=== PATIENT | female | born 1950 | race Caucasian/White ===

== ENCOUNTER → 2017-08-07 | Outpatient (CLI) | payer OTHER ==
[~2017-08-07] MED LIST: ASPIR 8181 M1 PO; CIPRO250 M2 PO; CLONAZEPAM 0.50.5 M1 PO; DICYCLOMINE HCL20 MG PO; HYDROCODONE-AP1 EAC6 PO; LISINOPRIL20 MG PO; LOPERAMIDE 2 MG2 M1 PO; MEDROL DOSPAK21 TA1 PO; MOBIC15 MG PO; NEURONTIN 300300 M1 PO; NORCO 5-325 TA1 EAC1 PO; ONDANSETRON HCL4 M2 PO; OTHER MISCELL; OXYBUTYNIN 5 MG5 M2 PO; REMERON15 MG; REQUIP0.5 MG PO; REQUIP3 MG PO; TRAMADOL 50 MG50 MG; TRAZODONE HCL50 MG PO; TYLENOL325 MG PO; ULTRAM 50MG TAB50 MG PO
== END ==
LOC: M.ULTRA 15:16
DX: R60.0 Localized edema (principal); M79.604 Pain in right leg; M79.605 Pain in left leg; M79.89 Other specified soft tissue disorders

== ENCOUNTER → 2018-06-11 | Outpatient (CLI) | payer OTHER | LOC: M.RAD 05-29 12:07 | DX: Z12.31 Encounter for screening mammogram for malignant neoplasm of breast (principal); Z13.820 Encounter for screening for osteoporosis; Z78.0 Asymptomatic menopausal state; Z87.891 Personal history of nicotine dependence ==

== ENCOUNTER 2018-12-27 00:32 | Emergency (ER) | payer OTHER ==
[~2018-12-27] VITALS: Ht 167.6 cm; Wt 49.9 kg
[2018-12-27 01:24] LABS: ABSOLUTE EOSINOPHILS 0.1 thou/uL (0.0-0.7); ABSOLUTE LYMPHOCYTES 1.3 thou/uL (0.8-5.3); ABSOLUTE MONOCYTES 0.6 thou/uL (0.0-1.2); ABSOLUTE NEUTROPHILS 4.3 thou/uL (1.6-8.1); BASOPHILS 0.8 %; EOSINOPHILS 1.8 %; HEMATOCRIT 36.9 % (37.0-47.0); HEMOGLOBIN 12.1 gm/dL (12.0-15.0); LYMPHOCYTES 21.1 %; MCH 29.2 pg (26.0-34.0); MCHC 32.9 g/dL (28.0-37.0); MCV 88.8 fL (80.0-100.0); MPV 8.2 fl. (7.2-11.1); NUCLEATED RBCS 0 /100WBC; PLATELET COUNT* 283 thou/uL (150-400); POLYS 67.3 %; RBC 4.16 mil/uL (4.20-5.00); RDW-CV 14.6 % (10.5-14.5); WBC 6.4 thou/uL (4.0-11.0)
[2018-12-27 01:29] LABS: CALCIUM 8.4 mg/dL (8.5-10.1); CREATININE 0.8 mg/dL (0.6-1.3); POTASSIUM 3.7 mmol/L (3.5-5.1)
[2018-12-27 01:34] LABS: ALBUMIN 3.1 g/dL (3.4-5.0); TOTAL BILIRUBIN 0.2 mg/dL (<0.1-1.0); TOTAL PROTEIN 6.2 g/dL (6.4-8.2)
[2018-12-27 02:53] VITALS: BP 183/59
--- NOTE | 2018-12-29 13:26 | EKG ---
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 : 1950 Requested By: Edelmira Medina Order Number: [id number] Reading MD: Herrera Arredondo Measurements Intervals [place] Rate: 87 P: 53 CA: 137 QRS: 29 QRSD: 78 T: 56 QT: 377 QTc: 454 Interpretive Statements Sinus rhythm Left atrial enlargement Left ventricular hypertrophy Anterior infarct, old Compared to ECG 05/08/2016 04:25:02 Myocardial infarct finding now present Possible ischemia no longer present Electronically Signed On 12-29-2018 13:26:41 CDT by Herrera Arredondo [email or web address] <ELECTRONICALLY SIGNED> By: Herrera Arredondo MD, [facility] 12/29/18 1326 0045 0045 Herrera Arredondo MD, [facility] /EPI
== END 2018-12-27 02:54 | disposition home or self-care (01) ==
LOC: M.ERS 00:32
PROVIDERS: Emergency Medicine
DX: T42.6X1A Poisoning by other antiepileptic and sedative-hypnotic drugs, accidental (unintentional), initial encounter (principal); Y92.89 Other specified places as the place of occurrence of the external cause; F32.9 Major depressive disorder, single episode, unspecified; Z96.643 Presence of artificial hip joint, bilateral; Z85.828 Personal history of other malignant neoplasm of skin; Z85.41 Personal history of malignant neoplasm of cervix uteri; R42 Dizziness and giddiness

== ENCOUNTER 2019-06-23 14:00 | Inpatient (IN) | payer OTHER ==
[~2019-06-23] VITALS: Ht 162.6 cm; Wt 54.6 kg
[2019-06-23 14:07] VITALS: BP 187/68
[2019-06-23] MEDS ORDERED: PAROXETINE HCL40 MG PO (14:33)
[2019-06-23] MEDS ORDERED: MIRAPEX 0.250.25 M1 PO (14:35)
[2019-06-23 14:36] LABS: ABSOLUTE EOSINOPHILS 0.1 thou/uL (0.0-0.7); ABSOLUTE LYMPHOCYTES 1.2 thou/uL (0.8-5.3); ABSOLUTE MONOCYTES 0.4 thou/uL (0.0-1.2); ABSOLUTE NEUTROPHILS 3.4 thou/uL (1.6-8.1); EOSINOPHILS 1.4 %; HEMATOCRIT 39.3 % (37.0-47.0); HEMOGLOBIN 13.4 gm/dL (12.0-15.0); LYMPHOCYTES 23.5 %; MCH 30.8 pg (26.0-34.0); MCHC 34.1 g/dL (28.0-37.0); MCV 90.3 fL (80.0-100.0); MONOCYTES 7.5 %; MPV 8.7 fl. (7.2-11.1); NUCLEATED RBCS 0 /100WBC; PLATELET COUNT* 204 thou/uL (150-400); POLYS 66.6 %; RBC 4.36 mil/uL (4.20-5.00); RDW-CV 14.5 % (10.5-14.5)
[2019-06-23 14:43] LABS: BE -8.1 mmol/L (-2 to +3); PCO2 28.1 mmHg (35.0-45.0); PO2 63.9 mmHg (75.0-100.0); pH 7.377 (7.340-7.450)
[2019-06-23 14:45] LABS: CALCIUM 8.7 mg/dL (8.5-10.1); CREATININE 0.8 mg/dL (0.6-1.3); POTASSIUM 3.6 mmol/L (3.5-5.1)
[2019-06-23 14:58] LABS: ALBUMIN 3.5 g/dL (3.4-5.0); TOTAL BILIRUBIN 0.4 mg/dL (<0.1-1.0); TOTAL PROTEIN 6.9 g/dL (6.4-8.2)
[2019-06-23 15:00] LABS: URINE BILIRUBIN NEGATIVE (Negative); URINE BLOOD NEGATIVE (Negative); URINE CLARITY SL CLOUDY; URINE COLOR YELLOW; URINE GLUCOSE-RANDOM NEGATIVE (Negative); URINE KETONES NEGATIVE (Negative); URINE LEUKOCYTES-REFLEX NEGATIVE (Negative); URINE NITRITE-REFLEX NEGATIVE (Negative); URINE PROTEIN 1+ (Negative); URINE UROBILINOGEN 0.2 E.U./dl (0.2-1.0)
[2019-06-23 15:12] LABS: SALICYLATE 5.5 mg/dL (2.8-20.0)
[2019-06-23 15:12] LABS: AMP/METHAMP Negative (Negative); BARBITURATES Negative (Negative); BENZODIAZEPINES Negative (Negative); COCAINE Negative (Negative); METHADONE Negative (Negative); OPIATES Negative (Negative); PCP Negative (Negative); THC Negative (Negative)
[2019-06-23 15:13] LABS: ACETAMINOPHEN < 2 ug/mL (10-30); ALCOHOL < 10 mg/dL (<10)
[2019-06-23 16:50] VITALS: BP 137/60
[2019-06-23 17:23] VITALS: BP 158/57
[2019-06-23 20:00] VITALS: BP 146/67
[2019-06-24] VITALS (9 sets, daily range): BP systolic 135–159; BP diastolic 42–57
[2019-06-24 04:34] LABS: HEMATOCRIT 34.1 % (37.0-47.0); MCH 29.9 pg (26.0-34.0); MCHC 33.5 g/dL (28.0-37.0); MCV 89.4 fL (80.0-100.0); MPV 8.7 fl. (7.2-11.1); NUCLEATED RBCS 0 /100WBC; PLATELET COUNT* 190 thou/uL (150-400); RBC 3.81 mil/uL (4.20-5.00); RDW-CV 14.1 % (10.5-14.5); WBC 3.1 thou/uL (4.0-11.0)
--- NOTE | 2019-06-24 04:39 | NUR ---
Pt is aox2, running NSR on telemetry, respirations are labored, but even. Pt is in no acute distress at this time. Will continue to monitor.
[2019-06-24 04:50] LABS: HEMOGLOBIN 11.4 gm/dL (12.0-15.0)
[2019-06-24 05:00] LABS: ANION GAP 12 mmol/L (7-16); BUN 16 mg/dL (7-18); CALCIUM 7.6 mg/dL (8.5-10.1); CHLORIDE 106 mmol/L (98-107); CHOLESTEROL 171 mg/dL (<200); CO2 20 mmol/L (21-32); CREATININE 0.6 mg/dL (0.6-1.3); GLUCOSE 154 mg/dL (70-99); HDL CHOLESTEROL 93 mg/dL (>40); LDL CHOLESTEROL 72 mg/dL (<100); MAGNESIUM 1.9 mg/dL (1.8-2.4); POTASSIUM 3.9 mmol/L (3.5-5.1); SODIUM 138 mmol/L (136-145); TC:HDL 1.8 Ratio (Not establshd); TRIGLYCERIDE 32 mg/dL (<150); VLDL 6 mg/dL (<40)
[2019-06-24 05:07] LABS: SERUM ASSESSMENT Clear
[2019-06-24 05:59] LABS: ABSOLUTE LYMPHOCYTES 0.4 thou/uL (0.8-5.3); ABSOLUTE NEUTROPHILS 2.7 thou/uL (1.6-8.1); PLATELET ESTIMATE ADEQUATE
[2019-06-24 06:00] LABS: ANISOCYTOSIS 1+; POIKILOCYTOSIS 1+
--- NOTE | 2019-06-24 12:24 | NUR ---
MET WITH PT TO DISCUSS HOME SITUATION/DC PLANNING. PT LIVES WITH SON, HER BEST FRIEND AND HIS GRANDSON. SHE STATES SHE IS INDEPENDENT AT HOME, USES WALKER NEEDED. PT HAS HAD HH IN THE PAST WITH [facility]. STATES WOULD WANT HH AGAIN IF NEEDED. PT STATES HER SON/ASHLEY IS HER DPOA, NOT SURE WHERE COPY IS. PT PLANS TO RETURN HOME AT [place]. WILL FOLLOW
--- NOTE | 2019-06-24 16:05 | NUR ---
ASSUMED CARE OF PT AT 0730. PT A&0X4, DENIES ANY PAIN OR SHORTNESS OF BREATH THROUGHOUT SHIFT. SEIZURE PRECAUTIONS IN PLACE. TRACING SR ON THE DATA ANALYST. ON RA SAT UPPER 90'S. IVF. PT UP WITH 1 ASSIST AND WALKER TO BATHROOM. PT PROGRESSING TOWARDS GOALS. TROPONIN NEGATIVE THIS AM- DENIES ANY CHEST PAIN. VISITORS AT BEDSIDE THROUGHOUT SHIFT. POSSIBLE DISCHARGE HOME TOMORROW 06/25. AM ASSESSMENT CHARTED. MEDICATIONS PER SEP. PT REPOSITIONS SELF. HOURLY ROUNDING OBSERVED. BED IN LOW POSITION. CALL LIGHT WITHIN REACH. WILL CONTINUE PLAN OF CARE.
--- NOTE | 2019-06-24 16:47 | 2DMMODE ---
[place] [address] 2 D/M-MODE ECHOCARDIOGRAM Name: TYSONSAMMI JOSE Room: [address] IN [facility]#: [id number] Admission: 06/23/19 Attend Phys: Hamlet Escobar MD Discharge: Date of : 48 Date of Service: 06/24/19 1647 Report #: [id number] THIS REPORT FOR: //name// APPROVED REPORT Study performed: 06/24/2019 14:22:51 EXAM: Comprehensive 2D, Doppler, and color-flow Echocardiogram Patient Location: In-Patient Room #: 229 Status: routine BSA: 1.50 HR: 92 bpm BP: 143/43 mmHg Rhythm: NSR Other Information Study Quality: Good Indications elevated bnp 2D Dimensions IVSd: 10.08 (7-11mm) LVOT Diam: 19.43 (18-24mm) LVDd: 50.04 mm PWd: 8.96 (7-11mm) Ascending Ao: 33.88 (22-36mm) LVDs: 32.23 (25-40mm) Aortic Root: 30.90 mm Volumes Left Atrial Volume (Systole) LA ESV Index: 47.00 mL/m2 Aortic Valve AoV Peak Josesito.: 2.38 m/s AO Peak Gr.: 22.60 mmHg LVOT Max P.53 mmHg AO Mean Gr.: 11.42 mmHg LVOT Mean P.43 mmHg LVOT Max V: 2.21 m/s AO V2 VTI: 42.42 cm LVOT Mean V: 1.31 m/s TARA (VTI): 3.02 cm2 LVOT V1 VTI: 43.18 cm AI [place]: 5.91 m/s2 AI PHT: 203.44 ms Mitral Valve E/A Ratio: 0.91 [place] [address] 2 D/M-MODE ECHOCARDIOGRAM Name: SAMMI MEHTA Room: [address] IN [facility].#: [id number] Admission: 06/23/19 Attend Phys: Hamlet Escobar MD Discharge: Date of : 48 Date of Service: 06/24/19 1647 Report #: [id number] MV Decel. Time: 155.40 ms MV E Max Josesito.: 1.00 m/s MV PHT: 45.06 ms MVA (PHT): 4.88 cm2 TDI E/Lateral E': 8.33 E/Medial E': 7.69 Medial E' Josesito.: 0.13 m/s Lateral E' Josesito.: 0.12 m/s Pulmonary Valve PV Peak Josesito.: 0.91 m/s PV Peak Gr.: 3.34 mmHg Tricuspid Valve RAP Estimate: 5.00 mmHg TR Peak Gr.: 34.99 mmHg RVSP: 40.00 mmHg PA Pressure: 40.00 mmHg Left Ventricle The left ventricle is normal size. There is normal LV segmental wall motion. There is normal left ventricular wall thickness. Left ventricular systolic function is normal. LVEF is 65-70%. The left ventricular diastolic function is normal. Right Ventricle The right ventricle is normal size. The right ventricular systolic function is normal. Atria Left atrium is mildly dilated. The right atrium size is normal. Aortic Valve Mild aortic valve sclerosis. Moderate aortic regurgitation. There is no aortic valvular stenosis. Mitral Valve The mitral valve is normal in structure. Mild mitral regurgitation. No evidence of mitral valve stenosis. Tricuspid Valve The tricuspid valve is normal in structure. Mild tricuspid regurgitation. Mild to moderate pulmonary hypertension. Pulmonic Valve The pulmonary valve is normal in structure[place] [address] 2 D/M-MODE ECHOCARDIOGRAM Name: SAMMI MEHTA Room: [address] [place] [facility]#: [id number] Admission: 06/23/19 Attend Phys: Hamlet Escobar MD Discharge: Date of : 48 Date of Service: 06/24/19 1647 Report #: [id number] valvular regurgitation. Great Vessels The aortic root is normal in size. IVC is normal in size and collapses >50% with inspiration. Pericardium There is no pericardial effusion. <Conclusion> The left ventricle is normal size. There is normal left ventricular wall thickness. Left ventricular systolic function is normal. LVEF is 65-70%. The left ventricular diastolic function is normal. Left atrium is mildly dilated. Mild aortic valve sclerosis. Moderate aortic regurgitation. There is no aortic valvular stenosis. Mild mitral regurgitation. Mild tricuspid regurgitation. Mild to moderate pulmonary hypertension. IVC is normal in size and collapses >50% with inspiration. <ELECTRONICALLY SIGNED> By: Melvin Thibodeaux MD, FACC 06/24/19 1647 164 164 Melvin Thibodeaux MD, FACC /INF
--- NOTE | 2019-06-24 16:53 | EKG ---
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: : 1950 Requested By: Silver Meléndez Order Number: [id number] MD: Melvin Thibodeaux Measurements Intervals [place] Rate: 105 P: 65 CA: 165 QRS: 33 QRSD: 87 T: 55 QT: 348 QTc: 461 Interpretive Statements Sinus tachycardia Atrial premature complex Left atrial enlargement Probable left ventricular hypertrophy Repol abnrm suggests ischemia, lateral leads Compared to ECG 12/27/2018 00:45:28 Atrial premature complex(es) now present Early repolarization now present Possible ischemia now present Sinus rhythm no longer present Myocardial infarct finding no longer present Electronically Signed On 06-24-2019 16:53:28 HAND CANDLE DIPPER by Melvin Thibodeaux [email or web address] <ELECTRONICALLY SIGNED> By: Melvin Thibodeaux MD, FACC 06/24/19 1653 1408 1408 Melvin Thibodeaux MD, FAC /EPI
[2019-06-25] VITALS: BP 161/57
[2019-06-25 04:00] VITALS: BP 170/52
--- NOTE | 2019-06-25 05:03 | NUR ---
PT SLEPT MOST OF SHIFT. ASSESSMENT DOCUMENTED. MEDS GIVEN PER E-MAR. IV PATENT, FLUIDS INFUSING. NO REPORTS OF PAIN. WILL CONTINUE WITH PLAN OF CARE.
[2019-06-25 12:00] VITALS: BP 180/65
[2019-06-25] MEDS ORDERED: VITAMIN B122500 MCG PO (12:34)
[2019-06-25] MEDS ORDERED: INDERAL LA120 M1 PO (12:34)
[2019-06-25] MEDS ORDERED: THERA M PLUS T1 EAC2 PO (12:34)
[2019-06-25] MEDS ORDERED: ASPIRIN EC81 M1 PO (12:34)
[2019-06-25] MEDS ORDERED: LEVAQUIN 750 M750 MG PO (12:34)
[2019-06-25] MEDS ORDERED: ATORVASTATIN CA20 MG PO (12:34)
[2019-06-25] MEDS ORDERED: SYMBICORT160 MCG/4. INH (12:34)
[2019-06-25] MEDS ORDERED: PREDNISONE 20 M20 MG PO (12:34)
[2019-06-25] MEDS ORDERED: VENTOLIN HFA INH8 GM INH (12:34)
[2019-06-25] MEDS ORDERED: NEXIUM40 MG PO (12:34)
--- NOTE | 2019-06-26 13:36 | EEG ---
[address] [address] EEG STUDY REPORT Name: SAMMI MEHTA Room: [address] IN .#: [id number] Admission: 06/23/19 Attend Phys: Hamlet Escobar MD Discharge: 06/25/19 Date of : 48 Report #: [id number] THIS REPORT FOR: //name// CC: NIKHIL Escobar DATE OF SERVICE: 06/23/2019 This patient is being evaluated for altered mental status. EEG was done by placing the electrode by standard 10-20 system of electrode placement. Both referential and sequential montages were used for recording. Background activity in this patient's EEG is about 11 Hz and 30 microvolts. The patient became drowsy and that is associated with bilateral slowing. Photic stimulation is unremarkable. No active epileptiform activity was noticed. IMPRESSION: This patient's EEG does not demonstrate any definite abnormality. Thank you very much for this referral. <ELECTRONICALLY SIGNED> By: Juan Interiano MD 06/26/19 1336 1856 1919Juan Interiano MD /nt
== END 2019-06-25 16:15 | disposition home or self-care (01) | DRG 189 ==
LOC: M.ERS 14:00 → M.2W 15:34 → M.TBA-ER 15:34 → M.2W 17:06
PROVIDERS: Emergency Medicine; ADMIT Family Medicine
DX: J96.01 Acute respiratory failure with hypoxia (principal); G93.41 Metabolic encephalopathy; R65.11 Systemic inflammatory response syndrome (SIRS) of non-infectious origin with acute organ dysfunction; J44.1 Chronic obstructive pulmonary disease with (acute) exacerbation; R64 Cachexia; E44.0 Moderate protein-calorie malnutrition; E87.2 Acidosis; E86.0 Dehydration; I25.10 Atherosclerotic heart disease of native coronary artery without angina pectoris; Z96.643 Presence of artificial hip joint, bilateral; G25.81 Restless legs syndrome; F32.9 Major depressive disorder, single episode, unspecified; F17.210 Nicotine dependence, cigarettes, uncomplicated; Z79.899 Other long term (current) drug therapy; Z85.828 Personal history of other malignant neoplasm of skin; Z85.41 Personal history of malignant neoplasm of cervix uteri; Z68.20 Body mass index [BMI] 20.0-20.9, adult

== ENCOUNTER → 2019-10-27 | Outpatient (CLI) | payer OTHER ==
[~2019-10-27] MED LIST changes: +ASPIRIN EC81 M1 PO; +ATORVASTATIN CA20 MG PO; +INDERAL LA120 M1 PO; +LEVAQUIN 750 M750 MG PO; +MIRAPEX 0.250.25 M1 PO; +NEXIUM40 MG PO; +PAROXETINE HCL40 MG PO; +PREDNISONE 20 M20 MG PO; +SYMBICORT160 MCG/4. INH; +THERA M PLUS T1 EAC2 PO; +VENTOLIN HFA INH8 GM INH; +VITAMIN B122500 MCG PO
--- NOTE | 2019-10-27 11:19 | 2DMMODE ---
[place] [address] 2 D/M-MODE ECHOCARDIOGRAM Name: SAMMI MEHTA Room: [facility]#: [id number] Admission: 10/27/19 Attend Phys: NIKHIL CARRILLO Discharge: Date of : 48 Date of Service: 10/27/19 1118 Report #: [id number] THIS REPORT FOR: cc: NIKHIL CARRILLO,NIKHIL Thibodeaux,Melvin Mccord MD [facility] ~ APPROVED REPORT Study performed: 10/27/2019 10:16:46 EXAM: Comprehensive 2D, Doppler, and color-flow Echocardiogram Patient Location: Out-Patient Status: routine BSA: 1.47 HR: 69 bpm BP: 126/60 mmHg Rhythm: NSR Other Information Study Quality: Good Indications LVH 2D Dimensions IVSd: 10.15 (7-11mm) LVOT Diam: 19.09 (18-24mm) LVDd: 46.13 mm PWd: 8.94 (7-11mm) LVDs: 28.80 (25-40mm) Aortic Root: 31.61 mm Volumes Left Atrial Volume (Systole) LA ESV Index: 28.60 mL/m2 Aortic Valve AoV Peak Josesito.: 2.49 m/s AO Peak Gr.: 24.87 mmHg LVOT Max P.76 mmHg AO Mean Gr.: 11.22 mmHg LVOT Mean P.03 mmHg LVOT Max V: 2.05 m/s AO V2 VTI: 42.24 cm LVOT Mean V: 1.20 m/s TARA (VTI): 2.50 cm2 LVOT V1 VTI: 36.87 cm AI [place]: 3.95 m/s2 [place] [address] 2 D/M-MODE ECHOCARDIOGRAM Name: SAMMI MEHTA Room: [facility]#: [id number] Admission: 10/27/19 Attend Phys: NIKHIL CARRILLO Discharge: Date of : 48 Date of Service: 10/27/19 1118 Report #: [id number] AI PHT: 336.59 ms Mitral Valve E/A Ratio: 1.28 MV Decel. Time: 253.96 ms MV E Max Josesito.: 0.99 m/s MV PHT: 73.65 ms MVA (PHT): 2.99 cm2 TDI E/Lateral E': 9.90 E/Medial E': 11.00 Medial E' Josesito.: 0.09 m/s Lateral E' Josesito.: 0.10 m/s Pulmonary Valve PV Peak Josesito.: 1.42 m/s PV Peak Gr.: 8.04 mmHg Tricuspid Valve RAP Estimate: 5.00 mmHg TR Peak Gr.: 21.12 mmHg RVSP: 26.00 mmHg PA Pressure: 26.00 mmHg Left Ventricle The left ventricle is normal size. There is normal LV segmental wall motion. Mild concentric left ventricular hypertrophy. Left ventricular systolic function is normal. LVEF is 65-70%. Transmitral Doppler flow pattern suggests restrictive physiology. Right Ventricle The right ventricle is normal size. The right ventricular systolic function is normal. Atria The left atrium size is normal. The right atrium size is normal. Aortic Valve Mild aortic valve sclerosis. Moderate to severe aortic regurgitation There is no aortic valvular stenosis. Mitral Valve There is mitral annular calcification. Mild mitral regurgitation. No evidence of mitral valve stenosis. Tricuspid Valve The tricuspid valve [place] [address] 2 D/M-MODE ECHOCARDIOGRAM Name: SAMMI MEHTA JOSE Room: [facility]#: [id number] Admission: 10/27/19 Attend Phys: NIKHIL CARRILLO Discharge: Date of : 48 Date of Service: 10/27/19 1118 Report #: [id number] regurgitation. No pulmonary hypertension. Pulmonic Valve The pulmonary valve is normal in structure. There is no pulmonic valvular regurgitation. Great Vessels The aortic root is normal in size. IVC is normal in size and collapses >50% with inspiration. Pericardium There is no pericardial effusion. <Conclusion> The left ventricle is normal size. Mild concentric left ventricular hypertrophy. Left ventricular systolic function is normal. LVEF is 65-70%. Transmitral Doppler flow pattern suggests restrictive physiology. Mild aortic valve sclerosis. Moderate to severe aortic regurgitation Mild mitral regurgitation. Trace tricuspid regurgitation. No pulmonary hypertension. <ELECTRONICALLY SIGNED> By: Melvin Thibodeaux MD, FACC 10/27/19 1118 1118 1118 Melvin Thibodeaux MD, FACC /INF
== END ==
LOC: M.CRD 10-13 14:00
DX: I08.0 Rheumatic disorders of both mitral and aortic valves (principal)

== ENCOUNTER 2020-01-20 01:31 | Emergency (ER) | payer OTHER ==
[~2020-01-20] VITALS: Ht 165.1 cm; Wt 59.0 kg
[2020-01-20] MEDS ORDERED: OXYCODONE (01:39)
[2020-01-20] MEDS ORDERED: LISINOPRIL (01:39)
[2020-01-20] MEDS ORDERED: [UNRECOGNIZED DRUG - REMARK] (01:40)
[2020-01-20 06:55] VITALS: BP 137/52
== END 2020-01-20 08:15 | disposition home or self-care (01) ==
LOC: M.ERS 01:31
DX: S43.014A Anterior dislocation of right humerus, initial encounter (principal); F32.9 Major depressive disorder, single episode, unspecified; F17.210 Nicotine dependence, cigarettes, uncomplicated; M25.552 Pain in left hip; Z96.643 Presence of artificial hip joint, bilateral; Z79.899 Other long term (current) drug therapy; W06.XXXA Fall from bed, initial encounter; Y93.89 Activity, other specified; Y92.89 Other specified places as the place of occurrence of the external cause; Y99.8 Other external cause status

== ENCOUNTER 2020-12-23 20:27 | Emergency (ER) | payer OTHER ==
[~2020-12-23] VITALS: Ht 165.1 cm; Wt 45.4 kg
[~2020-12-23 20:27] MED LIST changes: +LISINOPRIL; +OXYCODONE; +[UNRECOGNIZED DRUG - REMARK]
[2020-12-23] MEDS ORDERED: NEURONTIN 300M300 M2 PO (20:48)
[2020-12-23] MEDS ORDERED: TRAZODONE HCL50 MG PO (20:49)
[2020-12-23 21:16] LABS: ABSOLUTE EOSINOPHILS 0.1 thou/uL (0.0-0.7); ABSOLUTE MONOCYTES 0.4 thou/uL (0.0-1.2); ABSOLUTE NEUTROPHILS 3.6 thou/uL (1.6-8.1); BASOPHILS 0.6 %; HEMOGLOBIN 11.1 gm/dL (12.0-15.0); LYMPHOCYTES 19.1 %; MCH 27.3 pg (26.0-34.0); MCHC 32.8 g/dL (28.0-37.0); MCV 83.4 fL (80.0-100.0); MONOCYTES 8.1 %; MPV 8.8 fl. (7.2-11.1); NUCLEATED RBCS 0 /100WBC; PLATELET COUNT* 221 thou/uL (150-400); POLYS 70.2 %; RBC 4.08 mil/uL (4.20-5.00); RDW-CV 16.3 % (10.5-14.5); WBC 5.1 thou/uL (4.0-11.0)
[2020-12-23 21:24] LABS: CALCIUM 8.3 mg/dL (8.5-10.1); CREATININE 1.1 mg/dL (0.6-1.3); POTASSIUM 4.8 mmol/L (3.5-5.1)
[2020-12-23 21:28] LABS: ALBUMIN 3.3 g/dL (3.4-5.0); TOTAL BILIRUBIN 0.2 mg/dL (<0.1-1.0); TOTAL PROTEIN 6.9 g/dL (6.4-8.2)
[2020-12-23 23:26] LABS: URINE BILIRUBIN NEGATIVE (Negative); URINE BLOOD TRACE (Negative); URINE CLARITY CLEAR; URINE COLOR YELLOW; URINE GLUCOSE-RANDOM NEGATIVE (Negative); URINE KETONES NEGATIVE (Negative); URINE PROTEIN NEGATIVE (Negative); URINE UROBILINOGEN 0.2 E.U./dl (0.2-1.0)
[2020-12-23 23:29] LABS: URINE LEUKOCYTES-REFLEX 2+ (Negative); URINE NITRITE-REFLEX POSITIVE (Negative)
[2020-12-23] MEDS ORDERED: MACROBID 100 M100 M1 PO (23:36)
[2020-12-23 23:42] VITALS: BP 141/70
[2020-12-23 23:46] LABS: CASTS None Seen /LPF (None Seen); SQUAMOUS 4-10 Moderate /LPF (0-3); URINE RBC 0-2 Rare /HPF (0-2); URINE WBC-REFLEX >25 Many /HPF (0-5)
[2020-12-23 23:47] LABS: BACTERIA-REFLEX >30 Many /HPF (None Seen); CRYSTALS None Seen /LPF (None Seen)
--- NOTE | 2020-12-24 10:00 | EKG ---
[place] [address] ELECTROCARDIOGRAM REPORT Name: SAMMI MEHTA Room: [facility]#: [id number] Admission: 12/23/20 Attend Phys: Discharge: 12/23/20 Date of : 48 Date of Service: 12/23/202054 Report #: [id number] THIS REPORT FOR: //name// [facility] ED Test Date: 2020-12-23 Test Time: 20:55:48 Pat Name: SAMMI MEHTA Department: Room: Gender: F Wellness Trainer: JANIA : 1950 Requested By: Jose De Jesus Del Rio Order Number: [id number] MD: Norman Aguilar Measurements Intervals [place] Rate: 81 P: 27 CA: 132 QRS: 25 QRSD: 84 T: 59 QT: 389 QTc: 452 Interpretive Statements Sinus rhythm Compared to ECG 06/23/2019 14:08:02 Sinus tachycardia no longer present Atrial premature complex(es) no longer present Atrial abnormality no longer present Possible ischemia no longer present Electronically Signed On 12-24-2020 10:00:35 CDT by Norman Aguilar [email or web address] <ELECTRONICALLY SIGNED> By: Norman Aguilar MD, FAC 12/24/20999 54 54 Norman Aguilar MD, [facility] /EPI
== END 2020-12-23 23:43 | disposition still patient (30) ==
LOC: M.ERS 20:27
PROVIDERS: Physician Assistant
DX: N39.0 Urinary tract infection, site not specified (principal); K59.00 Constipation, unspecified; G25.81 Restless legs syndrome; F17.210 Nicotine dependence, cigarettes, uncomplicated; Z96.643 Presence of artificial hip joint, bilateral; Z85.828 Personal history of other malignant neoplasm of skin

== ENCOUNTER 2021-09-08 14:51 | Emergency (ER) | payer OTHER ==
[~2021-09-08] VITALS: Ht 165.1 cm; Wt 40.8 kg
[~2021-09-08 14:51] MED LIST changes: +MACROBID 100 M100 M1 PO; +NEURONTIN 300M300 M2 PO
[2021-09-08] MEDS ORDERED: HYDROCODON-ACE1 EAC7 PO (16:13)
[2021-09-08 16:24] VITALS: BP 134/55
== END 2021-09-08 17:54 | disposition home or self-care (01) ==
LOC: M.ERS 14:51
DX: S46.912A Strain of unspecified muscle, fascia and tendon at shoulder and upper arm level, left arm, initial encounter (principal); F32.9 Major depressive disorder, single episode, unspecified; G25.81 Restless legs syndrome; F17.210 Nicotine dependence, cigarettes, uncomplicated; Z79.899 Other long term (current) drug therapy; W19.XXXA Unspecified fall, initial encounter; Y93.89 Activity, other specified; Y92.89 Other specified places as the place of occurrence of the external cause; Y99.8 Other external cause status